=== PATIENT | male | born 2005 | race Caucasian/White ===

== ENCOUNTER 2024-08-17 16:26 | Emergency (ER) | payer OTHER, SELFPAY ==
[2024-08-17 16:31] VITALS: BP 111/69; PULSE 77; RESP 18; TEMP 37.1; O2SAT 96; BMI 20.4
--- NOTE | 2024-08-17 16:50 | ED.GENADULT ---
HPI - General Adult General Chief complaint: Allergic Reaction Stated complaint: possible allergic rxn, hives Time Seen by Provider: 08/17/24 16:29 Source: patient Mode of arrival: ambulatory Limitations: no limitations History of Present Illness HPI narrative: 18-year-old male presenting today with hives. This started this morning. They come and go throughout the day and migrate around the body. He denies difficulty breathing, cough, swollen lips or tongue. No difficulty speaking or swallowing. He denies fevers, chills, nausea or vomiting. He denies any recent illness. He denies any new foods, lotions or soaps. No new medications. Patient takes Lexapro and has been on that for about a year. Rash is mildly pruritic. He has not taken anything for it today. Related Data Home Medications ?Medication ?Instructions ?Recorded ?Confirmed escitalopram oxalate 10 mg tablet 10 mg PO DAILY 08/17/24 08/17/24 (Lexapro) Previous Rx's ?Medication ?Instructions ?Recorded prednisone 20 mg tablet 20 mg PO DAILY 2 days #2 tabs 08/17/24 Allergies Allergy/AdvReac Type Severity Reaction Status Date / Time No Known Drug Allergies Allergy Verified 08/17/24 16:30 Review of Systems Status of ROS: Reports: 10 or more systems reviewed and unremarkable except as noted in History and below [facility] Social History Smoking Status: Never smoker Do you use any of these nicotine containing products: None Second hand tobacco smoke exposure: No How often do you have a drink containing alcohol: never How often do you have six or more drinks on one occasion: Never AUDIT-C Alcohol total score: 0 Non-prescribed substance use: denies use service: No Exam Narrative: Exam Narrative: Well-nourished well-developed patient in no acute distress. Alert and oriented. Answers questions appropriately. Mood and affect are appropriate. Thoughts are goal oriented and rational. No tangential or magical thinking noted. Patient speaks in full sentences without needing to catch his breath. Voice sounds normal. HEENT: Normocephalic atraumatic. Pupils are equally round reactive to light. Extraocular muscles are intact. Conjunctivae are moist without any icterus noted. Moist mucous membranes. Posterior pharynx is normal. Neck is soft without any lymphadenopathy or thyromegaly. No masses are appreciated. Cardiovascular: Heart is regular rate and rhythm S1 and S2 are present without any murmurs. Lungs: Clear to auscultation bilaterally no wheezes rhonchi or rales are appreciated. Abdomen: Soft and nontender nondistended with normal bowel sounds. Extremities: Bilateral lower extremities are without edema. Skin: Well perfused. Patient has hives scattered across his back, trunk and extremities. Elevated and blanchable. Const: Vital Signs, click to edit/add: Vital Signs - 24 hr 08/17/24 16:31 Temperature 98.8 F Pulse Rate [Pulse Oximeter] 77 Respiratory Rate 18 Blood Pressure [Ri ght Upper Arm] 111/69 Pulse Oximetry 96 Oxygen Delivery Me thod Room Air Course Course ED Course: Prednisone 50mg given today. Patient states that he has lot to do for the remainder of his day and so he declined Benadryl at this time. Vital Signs Vital signs: Initial Vital Signs Temperature 98.8 F 08/17/24 16:31 Temperature Source Temporal Artery Scan 08/17/24 16:31 Pulse Rate 77 08/17/24 16:31 Pulse Rhythm Regular 08/17/24 16:31 Respiratory Rate 18 08/17/24 16:31 Blood Pressure 111/69 08/17/24 16:31 Blood Pressure Mean 83 08/17/24 16:31 Blood Pressure Position Sitting 08/17/24 16:31 Pulse Oximetry 96 08/17/24 16:31 Oxygen Delivery Method Room Air 08/17/24 16:31 Vital Signs Temperature 98.8 F 08/17/24 16:31 Pulse Rate 77 08/17/24 16:31 Respiratory Rate 18 08/17/24 16:31 Blood Pressure 111/69 08/17/24 16:31 Pulse Oximetry 96 08/17/24 16:31 Oxygen Delivery Method Room Air 08/17/24 16:31 Temperature 98.8 F 08/17/24 16:31 Pulse Rate 77 08/17/24 16:31 Respiratory Rate 18 08/17/24 16:31 Blood Pressure 111/69 08/17/24 16:31 Pulse Oximetry 96 08/17/24 16:31 Oxygen Delivery Method Room Air 08/17/24 16:31 Medical Decision Making MDM Narrative Medical decision making narrative: Hives of unclear etiology. This does not appear to be a common side effect of Lexapro. Monitor symptoms at this time. Encourage b.i.d. Benadryl for the next 3 days. Will also add Prednisone 20 mg daily for another 2 days. Discharge Plan Discharge Clinical Impression: Hives Patient Disposition: Home, Self-Care Condition: Stable Additional Instructions: Take Benadryl at least once per day for the next 3 days if not 2 times per day. Take prednisone as prescribed. Take 1st dose tomorrow as you received 1 dose in the ER today. If you develop swelling of the tongue, lips or you develop difficulty breathing or swallowing you should return to the emergency department. Follow-up with your primary care provider this coming week. Prescriptions: New prednisone 20 mg tablet 20 mg PO DAILY 2 Days Qty: 2 0RF No Action escitalopram oxalate [Lexapro] 10 mg tablet 10 mg PO DAILY Stand Alone Forms: [email or web address] Info Instructions
[2024-08-17] MEDS: predniSONE 10 MG TABLET 50 MG PO (16:57)
--- OUTSIDE RECORDS SUMMARY | 2024-08-17 17:04 | XMS_ITS | Clinical Summary ---
Author Organization [facility] Address [address] [place] [address], [address] [place] [address] Care Team Providers Care Fire Sprinkler Fitter Name Role Phone Assigned, Pcp Not Primary Care Provider [phone] Freddy Avila MD Unavailable [phone] Allergies No known active allergies Medications Medication Sig Dispensed Refills Start Date End Date Status Vyvanse 40 MG capsule ONE TAB BY MOUTH ONCE A DAY (IN THE MORNING) 09/10/2020 Active Active Problems No known active problems Family History Medical History Relation Name Comments Hypertension Other Relation Name Status Comments Other Social History Tobacco Use Types Packs/Day Years Used Date Smoking Tobacco: Never Smokeless Tobacco: Never Tobacco Cessation:Counseling Given: Not Answered Alcohol Use Standard Drinks/Week Comments No 0 (1 standard drink = 0.6 oz pur e alcohol) Housing Stability Answer Date Recorded Housing Stability Not on file 02/11/2023 Housing Stability Not on file 02/11/2023 Interpersonal Safety Answer Date Record ed Interpersonal Safety Not on file 06/13/2024 Interpersonal Safety Not on file 06/13/2024 Interpersonal Safety Not on file 06/13/2024 Interpersonal Safety Not on file 06/13/2024 Sex and Gender Information Value Date Recorded Sex Assigned at Not on file Gender Identity Not on file Sexual Orientation Not on file Last Filed Vital Signs Vital Sign Reading Time Taken Comments Blood Pressure 102/72 02/13/2024 11:18 AM PDT Pulse 76 02/13/2024 11:18 AM PDT Temperature 36.9 C (98.5 F) 02/13/2024 11:18 AM PDT Respiratory Rate 16 02/13/2024 11:18 AM PDT Oxygen Saturation 99% 02/13/2024 11:18 AM PDT Inhaled Oxygen Concentration - - Weight 71.2 kg (157 lb) 02/13/2024 11:18 AM PDT Height 185.4 cm (6' 1) 02/13/2024 11:18 AM PDT Body Mass Index 20.71 02/13/2024 11:18 AM PDT Plan of Treatment Health Maintenance Due Date Last Done Comments Hepatitis C Screening 2004 Syphilis Screening 10/27/2019 Hepatitis B Screening 2022 COVID-19 Vaccine ( season) 2024 07/08/2023, 05/10/2022, 06/24/2021, Additional history exists Influenza Vaccine (#1) 2024 , 07/08/2021, 03/12/2020, Additional history exists DTaP/Tdap/Td Vaccines (8 - Td or Tdap) 08/22/2025 08/22/2015, 02/09/2015, 11/03/2009, Additional history exists HIB Vaccines Completed 02/06/2006, 02/07, 01/07/2005 Hepatitis B Vaccines Completed 10/30/2006, 05/01/2006, 01/09/2006 Hepatitis A Vaccines Completed 11/13/2007, 10/31/19 07 Varicella Vaccines Completed 10/28/2008, 11/07/2005 IPV Vaccines Completed 11/03/2009, 01/09, 02/23/2005, Additional history exists MMR Vaccines Completed 11/03/2009, 11/07/2005 HPV Vaccines Completed 01/08/2020, 03/06/2018 Meningococcal Vaccine Completed 02/15/2021, 015 Meningococcal B Vaccine Completed 03/30/2022, 02/15 Rotavirus Vaccines Aged Out No longer eligible based on patient's age to complete this topic Care Teams Fire Sprinkler Fitter Relationship Specialty Start Date End Date Assigned, Pcp Not [facility] [place] [address] PCP - General 02/13/24 Freddy Avila MD [address] [facility] [address] [place] [address] Pediatrics 02/13/24
--- OUTSIDE RECORDS SUMMARY | 2024-08-17 17:04 | XMS_ITS | Clinical Summary ---
Author Organization [facility] [place] [facility] [place] [address] Care Team Providers Care Supervisor Telephone Answering Service Name Role Phone Freddy Avila MD Primary Care Provider [phone] Encounters Date Type Department Care Team Description 06/10/2024 9:49 AM PST - 06/10/2024 11:59 PM [facility] Hospital Encounter [facility] JORGE A Mcqueen [facility] Discharge Disposition: Home Routine from Last 3 Months Social History Tobacco Use Types Packs/Day Years Used Date Smoking Tobacco: Never Assessed Drug Use (DAST) Answer Date Recorded DAST Total Score Not on file 10/30/2022 Sex and Gender Information Value Date Recorded Sex Assigned at Not on file Gender Identity Not on file Sexual Orientation Not on file Plan of Treatment Health Maintenance Due Date Last Done Comments 1st year 2004 1-3 years 2005 3-17 years 10/27/2007 PHQ2 Depression Screen ([facility]CI) 10/27/2015 HPV Vaccine <= 26 Yrs (1 - M derick 3-dose series) 10/27/2019 Minor 10/27/2019 Cholesterol Screening (Ages: 9-11 & 17-21) 2021 18-21 years 2022 Adult 2022 Annual AUDIT Screen 2022 Annual DAST Screen 2022 Hepatitis C Screening 2022 [place] HIV Screening [facility]CI 2022 Wellness Visits 2022 Tetanus (1 - Tdap) 10/27/2023 Influenza (#1) 2024 COVID-19 Vaccine ( - 2023-2 5 season) 2024 Shingles Vaccine (1 of 2) 2054 Hep A Vaccine Series Aged Out No long er eligible based on patient's age to complete this topic Meningococcal MCV4 Vaccine Aged Out N o longer eligible based on patient's age to complete this topic Pneumococcal Vaccine Aged Out No long er eligible based on patient's age to complete this topic Polio Vaccine Aged Out No longer elig ible based on patient's age to complete this topic Care Teams Supervisor Telephone Answering Service Relationship Specialty Start Date End Date Freddy Avila MD [address] [facility] [address] [place] [id number] PCP - General 05/13/22
--- OUTSIDE RECORDS SUMMARY | 2024-08-17 17:04 | XMS_ITS | Continuity of Care Document ---
Author Organization [facility] Address [address] [place] [address] Phone Care Team Providers Care Dev Technical Mgr Name Role Phone Ramy CORONADO, Raul Bear Unavailable Unavailable Allergies, Adverse Reactions, Alerts Substance Reaction Status Criticality No Known Allergies Active No Inform ation Medications Medication Instructions Dosage Effective Dates (start - stop) Status Comments Vyvanse 50 mg capsule take 1 capsule by oral route every day in the morning 50 MG - Active fluoxetine 40 mg capsule take 1 capsule by oral route every day in the morning 40 MG - Active Procedures Procedure Date Ophth Serv: Med Exam; Comp New 24 Scan Computeriz Ophth Dx Imag Posterior Seg Scan Computeriz Ophth Dx Imag Posterior Seg Ophth Serv: Med Exam; Comp Est 24 Determ Refractive State Ophth Serv: Med Exam; Comp Est 19 Frame VSP Monofocal RT VSP Frames Purchases Determ Refractive State Ophth Serv: Med Exam; Comp Est 18 Determ Refractive State Ophth Serv: Med Exam; Comp Est 16 Determ Refractive State Ophth Serv: Med Exam; Comp Est 15 Determ Refractive State Unlisted Eval & Mgmt Serv Determ Refractive State Monofocal Rt Ophth Serv: Med Exam; Comp Est 13 Ophth Serv: Med Exam; Comp Est 13 Frames Purchases Frames Purchases Advance Directives Directive Yes / No Effective Date File Name Other Directive No N/A N/A WARNING:The information contained in this section is historical and is provided for information only and does not constitute a legal document or any assurance that the information is still accurate. Please verify the information with the ball of the legal document before using it for clinical purposes. Encounters Encounter Description Practice Location Reason(s) For Visit Diagnoses Date Provider Providers Copied on Encounter [facility], [address] [facility] [address], [place], [id number] , tel: [phone] [facility] ocular migranes (chief complaint) Ophthalmic migraineGlaucoma suspect of both eyesMigraine syndrome 4 Ramy Bear. [address] [place] [address], [id number] , [place]. tel: [phone] [facility], [address] [facility] [address], [place], [id number] , tel: [phone] [facility] floater (chief complaint) lost glasses (chief complaint) Vitreous floaters of right eyeLatent hypermetropia of both eyes 9 Blancq OD Varsha. [address], [place], [id number] , [place]. tel: [phone] [facility], [address] [facility] [address], [id number] , [place] tel: [phone] [facility] No Information 8 Ramy Bear. [address], [id number] , [place]. tel: [phone] [facility], [address] [facility] [address], [id number] , [place] tel: [phone] [facility] VSP Exam (chief complaint) Hyperopic astigmatism of right eyeHypermetropia of left eye Apr-2 8 Milligan OD Deepti. [address], [place], [id number] , [place]. tel: [phone] [facility], [address] [facility] [address], [id number] , [place] tel: [phone] [facility] complete exam (chief complaint) Hyperopic astigmatism of both eyes May- 6 Milligan OD Deepti. [address] , [address], [place], [place], [id number] , [place]. tel: [phone] [facility], [address] [facility] [address], [id number] , [place] tel: [phone] [facility] decreased vision (chief complaint) Hyperopic astigmatism of both eyes Oct-3 5 Ramy Bear. [address], [place], [id number] , [place]. tel: [phone] Unlisted Eval & Mgmt Serv [facility], [address] [facility] [address], [id number] , [place] tel: [phone] [facility] HYPERMETROPIAASTI GMATISM, UNSPECIFIED 4 Ramy Bear. [address], [place], [id number] , [place]. tel: [phone] [facility], [address] [facility] [address], [id number] , [place] tel: [phone] [facility] Hypermetropia 3 Ramy Bear. [address], [place], [id number] , [place]. tel: [phone] Family History Family Member Type Diagnosis Age At Onset Father Problem (finding) No history of Glaucoma Father Problem (finding) No history of Macular d egeneration Mother Problem (finding) No history of Macular d egeneration Mother Problem (finding) No history of Glaucoma Payers Payer name Insurance type Covered republican ID Newton Pepper (s) O CI [id number] Social History Type Description Quantity Date Captured Comments Alcohol Use Details No Caffeine Use Details No Tobacco Use Status Never smoked tobacco 2023 Smoking Status Never smoker Non-Smoking Tobacco Use Details : No Details Available : No Details Available Sex Male Chief Complaint And Reason For Visit From encounter dated '06/27/2024 08:45'. ocular migranes (chief complaint). Description: The 18 year old patient presents for evaluation of ocular migranes in the right eye and left eye. pt reported this condition happened about two months ago lasting about 2 hours. pt reported this to his Psychiatrist, Dr. Nery Engel who refferedhim out to Dr. Mccann. pt reported his Psychiatrist told him that the current medication he is on Lexapro, might cause Glaucoma. pt is alone in the exam room. Reason For Referral Reason For Referral No Information Plan Of Treatment Date Type Action Status Goal Unhealthy drug use screening . Due on due Goal Hepatitis C screening. Due o n due Goal H&P. Due on due Appointment Terrence Vanessa BOOKED History Of Present Illness Encounter Date Complaint History Of Prese nt Illness ocular migranes The 18 year old patient presents for evaluation of ocular migranes in the right eye and left eye. pt reported this condition happened about two months ago lasting about 2 hours. pt reported this to his Psychiatrist, Dr. Nery Engel who reffered him out to Dr. Mccann. pt reported his Psychiatrist told him that the current medication he is on Lexapro, might cause Glaucoma. pt is alone in the exam room. lost glasses The patient lost his glasses. They were from last year's Rx & supposed to be for reading, but when he wore them, vision would be blurry. Pt doesn't have any headaches or visual issues - doing fine without glasses. floater The 13 year 1 mo nth old male presents for evaluation of floater in the right eye. It started about 3 year(s) ago. No flashes.Pt's mom in exam room. VSP Exam The 12 year old male presents for evaluation of VSP Exam in the right eye and left eye. Patient lost his glasses. Patient only wears glasses apartment rental clerk. No visual or ocular complaints. Patient's mother present in exam room. complete exam The 10 year 7 mo nth old male presents for evaluation of complete exam in the right eye and left eye. Pt denies any sigificant changes in VA OU x 1 year. Pt wears glasses Rx on occasion, typically at home, after reading for extended periods of time. Pt states that VA OU becomes blurry after reading in dim lighting and/or reading for extended periods of time. Pt uses ATs PRN OU. Pt is accompanied by mother in exam room. decreased vision The 9 year 6 m onth old male presents for evaluation of decreased vision in the right eye and left eye. It affects both near and far vision. Especially near vision. Patient lost glasses. 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 Related to Latent hypermetropia of both eyes Impression/Plan Related to Laten t hypermetropia of both eyes Patient education given Related to Latent hypermetropia of both eyes Impression/Plan Related to Vitre ous floaters of right eye Hyperopic astigmatis m of right eye - Patient education given Related to Hyperopic astigmatism of right eye - See plan #1. Related to Hyper metropia of left eye - Return in 1 year w sunni Mccann MD for Complete Exam Related to Hypermetropia of left eye - New glasses Rx was given today. daytime babysitter wear as needed. Related to Hyperopic astigmatism of right eye - New glasses Rx was given today . Related to Hyperopic astigmatism of both eyes - Return in 1 year w sunni Mccann MD for Complete Exam Related to Hyperopic astigmatism of both eyes - New glasses Rx was given today. Patient interested in contact lenses. Spoke with patient and mom about option of contact lenses if vision worsens or when patient needs to wear correction manager multimedia. Related to Hyperopic astigmatism of both eyes - Return in 1 year w sunni Mccann MD for Complete Exam Related to Hyperopic astigmatism of both eyes Hyperopic astigmatis m of both eyes - Patient education given Related to Hyperopic astigmatism of both eyes Hyperopic astigmatis m of both eyes - Patient education given Related to Hyperopic astigmatism of both eyes Hyperopia Astigmatis m - New glasses Rx was given today, primarily for reading. Related to Astigmatism - Return to office as needed Rel ated to Astigmatism Hypermetropia - New glasses Rx was given today. 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 Due to medication assessment Migraine syndrome impression Migraine syndrome: G43.909 Patient Care Teams Name Effective Dates (start - stop) Status Members No Information
--- OUTSIDE RECORDS SUMMARY | 2024-08-17 17:04 | XMS_ITS | Encounter Summary ---
Author Organization [facility] Address [address] [place] [address], [address] [place] [address] Care Team Providers Care Plate Roller Name Role Phone Assigned, Pcp Not Primary Care Provider [phone] Frdedy Avila MD Primary Care Provider [phone] Assigned, Pcp Not Primary Care Provider [phone] Freddy Avila MD Unavailable [phone] Encounter Details Date Type Department Care Team (Late st Contact Info) Description 07/12/2018 [facility] CONVERSION DEPARTMENT Social History Tobacco Use Types Packs/Day Years Used Date Smoking Tobacco: Never Assessed Sex and Gender Information Value Date Recorded Sex Assigned at Not on file Gender Identity Not on file Sexual Orientation Not on file documented as of this encounter Plan of Treatment Not on file documented as of this encounter Visit Diagnoses Not on filedocumented in this encounter Care Teams Plate Roller Relationship Specialty Start Date End Date Assigned, Pcp Not [place], [place] [address] PCP - General 10/18/20 02/10/23 Freddy Avila MD [address] [place] [address] PCP - General Pediatrics 02/11/23 02/12/24 Assigned, [place] [address] PCP - General 02/13/24 [place] [address] [place] [address] Pediatrics 02/13/24 documented as of this encounter
--- OUTSIDE RECORDS SUMMARY | 2024-08-17 17:04 | XMS_ITS | Referral Summary ---
Author Organization [facility] Address [address] [address] Care Team Providers Care Linux Admin Engineer Name Role Phone Freddy Avila MD Primary Care Provider Allergies No known active allergies Social History Tobacco Use Types Packs/Day Years Used Date Smoking Tobacco: Never Smokeless Tobacco: Never Alcohol Use Standard Drinks/Week Comments No 0 (1 standard drink = 0.6 oz pur e alcohol) Sex and Gender Information Value Date Recorded Sex Assigned at Not on file Legal Sex Male 1:28 PM PST Gender Identity Not on file Sexual Orientation Not on file Last Filed Vital Signs Vital Sign Reading Time Taken Comments Blood Pressure 118/67 07/12/2018 12:00 PM PST Pulse 91 07/12/2018 12:00 PM PST Temperature 36.6 C (97.9 F) 07/12/2018 12:00 PM PST Respiratory Rate 16 07/12/2018 12:0 0 PM PST Oxygen Saturation 98% 07/12/2018 12: 00 PM PST Inhaled Oxygen Concentration - - Weight 50.9 kg (112 lb 3.4 oz) 07/12/2018 9:15 A M PST Height 175.3 cm (5' 9) 07/12/2018 9:15 AM PST Body Mass Index 16.57 07/12/2018 9:15 AM PST Body Mass Index Percentile 12.53% 07/12/2018 9:1 5 AM PST Growth Chart: CDC (Boys, 2-2 0 Years) Plan of Treatment Not on file Insurance [place] [id number] [employer] CHOICE POS II AET[employer] CHOICE POS II Care Teams Linux Admin Engineer Relationship Specialty Start Date End Date Freddy Avila MD [address] [place], [place] [address] PCP - General Pediatrics 07/12/18
--- OUTSIDE RECORDS SUMMARY | 2024-08-17 17:04 | XMS_ITS | Referral Summary ---
Author Organization [facility] Address [facility] [facility], [address] [place] [address] Care Team Providers Care Broker Assistant Name Role Phone Assigned, Pcp Not Primary Care Provider [phone] Freddy Avila MD Unavailable [phone] Allergies No known active allergies Medications Medication Sig Dispensed Refills Start Date End Date Status Vyvanse 40 MG capsule ONE TAB BY MOUTH ONCE A DAY (IN THE MORNING) 09/10/2020 Active Active Problems No known active problems Social History Tobacco Use Types Packs/Day Years [...] 02/13/2024 11:18 AM PDT Plan of Treatment Not on file Care Teams Broker Assistant Relationship Specialty Start Date End Date Assigned, [place] [address] PCP - General 02/13/24 Freddy Avila MD [address] [facility] [address] [place] [address] Pediatrics 02/13/24
--- OUTSIDE RECORDS SUMMARY | 2024-08-17 17:04 | XMS_ITS | Clinical Summary ---
Author Organization [facility] Address [address] [address] Care Team Providers Care Group Sales Coordinator Name Role Phone Freddy Avila MD Primary Care Provider [phone] Allergies No known active allergies Family History Medical History Relation Comments Hypertension Other Relation Status Comments Other Social History Tobacco Use [...] (Boys, 2-2 0 Years) Plan of Treatment Health Maintenance Due Date Last Done Comments Well Child Check 10/27/2007 COVID-19 Vaccine (5 2023-2 5 season) 2024 05/10/2022, 06/24/2021, 11/18/2020, Additional history exists Vaccine: Influenza (#1) 2024 07/08/20 21, 03/12/2020, 07/28/2005 Vaccine: Dtap/Tdap/Td (8 - T d or Tdap) 08/22/2025 08/22/2015, 02/09/2015, 11/03/2009, Additional history exists Vaccine: Hib Completed 02/06/2006, 02/07, 01/07/2005 Vaccine: HPV Completed 01/08/2020, 03/06/2018 [place] [id number] AETNA CHOICE POS II AETNA CHOICE POS II Care Teams Group Sales Coordinator Relationship Specialty Start Date End Date Freddy Avila MD [facility] [address] PCP - General Pediatrics 07/12/18
== END 2024-08-17 17:10 | disposition home or self-care (01) ==
PROVIDERS: Emergency Provider Family Medicine
DX: L50.9 Urticaria, unspecified (principal)
CPT/HCPCS: 99283; 99284; J7512